=== PATIENT | female | born 1960 | race Caucasian/White ===

== ENCOUNTER 2016-12-23 18:51 | Emergency (ER) | payer OTHER ==
[~2016-12-23] VITALS: Ht 157.5 cm; Wt 58.8 kg
[2016-12-23 18:59] VITALS: BP 134/79
[2016-12-23] MEDS ORDERED: KEFLEX500 MG PO (20:07)
== END 2016-12-23 20:25 | disposition home or self-care (01) ==
LOC: EME 18:51
PROC: 3E0234Z Introduction of Serum, Toxoid and Vaccine into Muscle, Percutaneous Approach (ICD-10-PCS; principal; 2016-12-23)
DX: S31.113A Laceration without foreign body of abdominal wall, right lower quadrant without penetration into peritoneal cavity, initial encounter (principal); Z23 Encounter for immunization; W26.8XXA Contact with other sharp object(s), not elsewhere classified, initial encounter; Z88.2 Allergy status to sulfonamides
CPT/HCPCS: 99281; 99284